=== PATIENT | male | born 1980 | race African-American/Black ===

== ENCOUNTER 2017-04-06 14:12 | Emergency (ER) | payer SELFPAY ==
[~2017-04-06] VITALS: Ht 177.8 cm; Wt 80.0 kg
[~2017-04-06 14:12] MED LIST: HYDR25SU7 RC; HYDR453.4 TP; MESA400C PO; VANJ5 PO
[2017-04-06] MEDS: SODIUM CHLORIDE 0.9% 1,000 ML IV ONE (19:17)
[2017-04-06] MEDS: KETOROLAC 30MG/ML VIAL IV STA (19:17)
[2017-04-06] MEDS: METOCLOPRAMIDE HCL 10MG/2ML VIAL IV ONE ×2 (19:30→20:50)
[2017-04-06 23:05] VITALS: BP 129/70
== END 2017-04-06 23:55 | disposition left against medical advice (07) ==
LOC: ER 14:12
DX: R51 Headache (principal); F17.200 Nicotine dependence, unspecified, uncomplicated; Z88.8 Allergy status to other drugs, medicaments and biological substances
CPT/HCPCS: 96361; 96374; 96375; 99284; J1885; J2765; J7030; Z7610

== ENCOUNTER 2017-04-11 03:10 | Inpatient (IN) | payer MEDICAID, OTHER ==
[~2017-04-11] VITALS: Ht 360.7 cm; Wt 75.7 kg
[2017-04-11] MEDS ORDERED: SODIUM CHLORIDE 0.9% 1,000 ML IV ONE ×2 (06:35→12:15)
[2017-04-11] MEDS ORDERED: ONDANSETRON HCL 4MG/2ML VIAL IV STA (06:35)
[2017-04-11] MEDS ORDERED: MORPHINE SULFATE 4 MG/ML CPJ (NOT FOR IM USE) IV STA (06:35)
[2017-04-11] MEDS ORDERED: PANTOPRAZOLE SODIUM 40 MG/VIAL IV STA (06:35)
[2017-04-11 07:18] LABS: BASOPHILS % 1.2 % (0.0-2.0); EOSINOPHILS % 2.8 % (0.0-5.0); HEMATOCRIT. 41.4 % (42.0-52.0); LYMPHOCYTES % 14.1 % (20.0-50.0); MEAN CORPUSCULAR HEMOGLOBIN 30.5 pg (28.0-32.0); MEAN CORPUSCULAR VOLUME 90.1 fL (80.0-94.0); MEAN PLATELET VOLUME 9.4 fl (7.4-10.4); MONOCYTES % 14.5 % (2.0-8.0); NEUTROPHILS % 67.4 % (40.0-76.0); PLATELET 237 x1000/uL (130-400); RED BLOOD CELL COUNT 4.59 mill/uL (4.7-6.1); RED CELL DISTRIBUTION WIDTH 13.6 % (11.6-14.6)
[2017-04-11 07:33] LABS: INR 1.1; PARTIAL THROMBOPLASTIN TIME 25.3 sec (23.4-31.0); PROTHROMBIN TIME 11.4 sec (9.4-11.6)
[2017-04-11 08:20] LABS: CARBON DIOXIDE 26 mEq/L (21-32); CHLORIDE 107 mEq/L (98-107)
[2017-04-11] MEDS ORDERED: IOHEXOL-300 100 ML BOTTLE ONE (10:47)
[2017-04-11] MEDS ORDERED: TRAMADOL 50MG TABLET PO PRN (13:30)
[2017-04-11 14:28] VITALS: BP 123/78
[2017-04-11] MEDS ORDERED: HYDROMORPHONE HCL/PF 2MG/ML CPJ IV PRN (16:15)
[2017-04-11 17:28] LABS: PHOSPHORUS 2.8 mg/dL (2.5-4.9); PREALBUMIN 15.2 mg/dL (20.0-40.0)
[2017-04-11] MEDS: DEXT 5%/0.45% NACL 1000ML 1,000 ML IV SCH (18:09)
[2017-04-11] MEDS: LEVOFLOXACIN 500MG PREMIX 100 ML IV SCH (18:15)
[2017-04-11 20:32] VITALS: BP 112/75
[2017-04-11] MEDS: METRONIDAZOLE 500 MG PREMIX 100 ML IV SCH (22:03)
[2017-04-12 00:33] VITALS: BP 120/73
[2017-04-12] MEDS: KETOROLAC 30MG/ML VIAL IV PRN ×2 (02:51→09:32)
[2017-04-12] MEDS: ONDANSETRON HCL 4MG/2ML VIAL IV PRN (02:52)
[2017-04-12 04:00] VITALS: BP 128/93
[2017-04-12] MEDS: METRONIDAZOLE 500 MG PREMIX 100 ML IV SCH ×3 (06:58→22:41)
[2017-04-12 08:30] VITALS: BP 102/65
[2017-04-12] MEDS: AMOXICILLIN 500 MG CAPSULE PO SCH ×2 (09:31→22:41)
[2017-04-12] MEDS: FAMOTIDINE 20MG/2ML VIAL IV SCH (09:32)
[2017-04-12 09:43] LABS: BASOPHILS % 0.8 % (0.0-2.0); EOSINOPHILS % 2.3 % (0.0-5.0); HEMATOCRIT. 38.2 % (42.0-52.0); HEMOGLOBIN. 13.2 g/dL (14.0-18.0); LYMPHOCYTES % 15.2 % (20.0-50.0); MEAN CORPUSCULAR HEMOGLOBIN 30.8 pg (28.0-32.0); MEAN CORPUSCULAR VOLUME 89.3 fL (80.0-94.0); MEAN PLATELET VOLUME 9.2 fl (7.4-10.4); MONOCYTES % 12.8 % (2.0-8.0); NEUTROPHILS % 68.9 % (40.0-76.0); PLATELET 228 x1000/uL (130-400); RED BLOOD CELL COUNT 4.28 mill/uL (4.7-6.1); RED CELL DISTRIBUTION WIDTH 13.6 % (11.6-14.6)
[2017-04-12 10:00] LABS: CARBON DIOXIDE 24 mEq/L (21-32); CHLORIDE 102 mEq/L (98-107)
[2017-04-12 12:25] VITALS: BP 118/81
[2017-04-12] MEDS: ACETAMINOPHEN 325MG TABLET PO PRN (15:36)
[2017-04-12 16:58] VITALS: BP 109/76
[2017-04-12] MEDS: DEXT 5%/0.45% NACL 1000ML 1,000 ML IV SCH (17:35)
[2017-04-12] MEDS: LEVOFLOXACIN 500MG PREMIX 100 ML IV SCH (18:00)
[2017-04-13] MEDS: METRONIDAZOLE 500 MG PREMIX 100 ML IV SCH ×3 (06:00→22:07)
[2017-04-13] MEDS: KETOROLAC 30MG/ML VIAL IV PRN ×2 (07:20→22:37)
[2017-04-13 08:21] VITALS: BP 112/71
[2017-04-13] MEDS: AMOXICILLIN 500 MG CAPSULE PO SCH ×3 (09:05→22:38)
[2017-04-13] MEDS: FAMOTIDINE 20MG/2ML VIAL IV SCH (09:05)
[2017-04-13] MEDS: ACETAMINOPHEN 325MG TABLET PO PRN (11:28)
[2017-04-13] MEDS: DEXT 5%/0.45% NACL 1000ML 1,000 ML IV SCH (11:28)
[2017-04-13 12:31] VITALS: BP 108/64
[2017-04-13 16:58] VITALS: BP 108/63
[2017-04-13] MEDS: LEVOFLOXACIN 500MG PREMIX 100 ML IV SCH (17:31)
[2017-04-13 20:00] VITALS: BP 119/79
[2017-04-13] MEDS: ONDANSETRON HCL 4MG/2ML VIAL IV PRN (22:37)
[2017-04-14] MEDS: METRONIDAZOLE 500 MG PREMIX 100 ML IV SCH (02:07)
[2017-04-14 08:00] VITALS: BP 114/77
[2017-04-14] MEDS: FAMOTIDINE 20MG/2ML VIAL IV SCH (08:31)
[2017-04-14] MEDS: AMOXICILLIN 500 MG CAPSULE PO SCH ×2 (08:32→21:03)
[2017-04-14] MEDS ORDERED: METRONIDAZOLE 500 MG PREMIX 100 ML IV SCH (10:00)
[2017-04-14 12:00] VITALS: BP 110/68
[2017-04-14] MEDS: KETOROLAC 30MG/ML VIAL IV PRN ×2 (12:19→22:25)
[2017-04-14] MEDS: DEXT 5%/0.45% NACL 1000ML 1,000 ML IV SCH (15:32)
[2017-04-14 16:00] VITALS: BP 129/72
[2017-04-14] MEDS: LEVOFLOXACIN 500MG PREMIX 100 ML IV SCH (17:17)
[2017-04-14] MEDS ORDERED: LEVOFLOXACIN 500MG TABLET PO SCH (17:29)
[2017-04-14] MEDS: METRONIDAZOLE 500MG TABLET PO SCH ×2 (18:06→21:04)
[2017-04-14 20:00] VITALS: BP 120/81
[2017-04-15] VITALS: BP 111/67
[2017-04-15] MEDS: DEXT 5%/0.45% NACL 1000ML 1,000 ML IV SCH (00:02)
[2017-04-15 04:00] VITALS: BP 116/65
[2017-04-15] MEDS: METRONIDAZOLE 500MG TABLET PO SCH (05:01)
[2017-04-15] MEDS: KETOROLAC 30MG/ML VIAL IV PRN ×2 (05:06→12:00)
[2017-04-15 08:00] VITALS: BP 123/72
[2017-04-15] MEDS: AMOXICILLIN 500 MG CAPSULE PO SCH (09:21)
[2017-04-15] MEDS ORDERED: TRAM50TA73 PO (10:23)
[2017-04-15 12:00] VITALS: BP 129/88
[2017-04-15 13:42] VITALS: BP 129/88
== END 2017-04-15 14:50 | disposition home or self-care (01) | DRG 245 ==
LOC: ER 03:18 → 6WST 09:53 → ENRESERV 13:11
PROVIDERS: ADMIT Hospitalist; ATTEND Hospitalist
DX: K50.90 Crohn's disease, unspecified, without complications (principal); E44.1 Mild protein-calorie malnutrition; K92.2 Gastrointestinal hemorrhage, unspecified; K52.9 Noninfective gastroenteritis and colitis, unspecified; K40.90 Unilateral inguinal hernia, without obstruction or gangrene, not specified as recurrent; K43.5 Parastomal hernia without obstruction or gangrene; Z90.49 Acquired absence of other specified parts of digestive tract; Z93.3 Colostomy status; Z88.8 Allergy status to other drugs, medicaments and biological substances; Z79.2 Long term (current) use of antibiotics; Z79.899 Other long term (current) drug therapy; Z93.2 Ileostomy status; Z68.1 Body mass index [BMI] 19.9 or less, adult
CPT/HCPCS: 36415; 71010; 74177; 80053; 82962; 83690; 83735; 84100; 84134; 84478; 85025; 85610; 85730; 87040; 87493; 96361; 96374; 96375; 99285; C1893; C9113; J1170; J1885; J1956; J2270; J2405; J3490; J7030; Q9967

== ENCOUNTER 2017-04-17 00:58 | Emergency (ER) | payer MEDICAID ==
[~2017-04-17] VITALS: Ht 182.9 cm; Wt 77.0 kg
[2017-04-17] MEDS ORDERED: HYDROCODONE/ACETAMINOPHEN 5/325MG TABLET PO STA (05:24)
[2017-04-17] MEDS ORDERED: SODIUM CHLORIDE 0.9% 1,000 ML IV ONE ×2 (05:24→08:30)
[2017-04-17 05:50] LABS: CHLORIDE 99 mEq/L (98-107)
[2017-04-17 05:53] LABS: BASOPHILS % 1.1 % (0.0-2.0); EOSINOPHILS % 2.7 % (0.0-5.0); HEMATOCRIT. 47.3 % (42.0-52.0); LYMPHOCYTES % 18.6 % (20.0-50.0); MEAN CORPUSCULAR VOLUME 91.6 fL (80.0-94.0); MEAN PLATELET VOLUME 8.8 fl (7.4-10.4); MONOCYTES % 11.5 % (2.0-8.0); NEUTROPHILS % 66.1 % (40.0-76.0); PLATELET 264 x1000/uL (130-400); RED BLOOD CELL COUNT 5.17 mill/uL (4.7-6.1); RED CELL DISTRIBUTION WIDTH 13.8 % (11.6-14.6)
[2017-04-17 05:58] LABS: CARBON DIOXIDE 25 mEq/L (21-32); ETHANOL BLOOD < 10 mg/dL
[2017-04-17] MEDS ORDERED: ONDANSETRON HCL 4MG/2ML VIAL IV ONE (07:45)
[2017-04-17] MEDS ORDERED: KETOROLAC 30MG/ML VIAL IV ONE (07:45)
[2017-04-17 10:01] LABS: CLARITY URINE CLEAR (CLEAR); COLOR URINE YELLOW (YELLOW); GLUCOSE URINE NEGATIVE (NEGATIVE); KETONES URINE NEGATIVE (NEGATIVE); LEUKOCYTE ESTERASE URINE NEGATIVE (NEGATIVE); NITRITE URINE NEGATIVE (NEGATIVE); OCCULT BLOOD URINE NEGATIVE (NEGATIVE); PH URINE 5.5 (4.5-8.0); PROTEIN URINE NEGATIVE (NEGATIVE); SPECIFIC GRAVITY URINE 1.011 (1.005-1.030); UROBILINOGEN URINE 0.2 E.U./dL (0.2-1.0)
[2017-04-17 10:21] LABS: *AMPHETAMINES SCREEN URINE NEGATIVE (NEGATIVE); *BARBITURATES SCREEN URINE NEGATIVE (NEGATIVE); *BENZODIAZEPINES SCREEN URINE NEGATIVE (NEGATIVE); *COCAINE SCREEN URINE NEGATIVE (NEGATIVE); CANNABINOID URINE SCREEN NEGATIVE (NEGATIVE); METHADONE URINE SCREEN NEGATIVE (NEGATIVE); OPIATES URINE SCREEN PRESUMTIVE POSITIVE (NEGATIVE); PHENCYCLIDINE URINE SCREEN NEGATIVE (NEGATIVE)
[2017-04-17] MEDS ORDERED: HYDROCODONE/ACETAMINOPHEN 5/325MG TABLET PO ONE (10:45)
[2017-04-17] MEDS ORDERED: KETOROLAC 15MG/ML VIAL IV ONE (11:15)
[2017-04-17 13:25] VITALS: BP 122/80
== END 2017-04-17 13:37 | disposition home or self-care (01) ==
LOC: ER 01:06
DX: R53.1 Weakness (principal); R51 Headache; K50.90 Crohn's disease, unspecified, without complications; Z88.8 Allergy status to other drugs, medicaments and biological substances; Z79.899 Other long term (current) drug therapy; Z87.19 Personal history of other diseases of the digestive system
CPT/HCPCS: 36415; 80053; 80305; 81003; 83690; 85025; 96361; 96374; 96375; 99285; C1893; G0482; J1885; J2405; J7030; Z7610

== ENCOUNTER 2022-11-09 06:05 | Inpatient (IN) | payer MEDICAID ==
[~2022-11-09] VITALS: Ht 172.7 cm; Wt 45.8 kg
[2022-11-09] MEDS ORDERED: MORPHINE SULFATE 4 MG/ML CPJ (NOT FOR IM USE) IV STA (06:34)
[2022-11-09] MEDS ORDERED: ONDANSETRON HCL 4MG/2ML INJ IV STA (06:34)
[2022-11-09] MEDS ORDERED: SODIUM CHLORIDE 0.9% 1,000 ML IV ONE (06:45)
[2022-11-09] MEDS ORDERED: CLONIDINE 0.1MG TABLET PO PRN (15:00)
[2022-11-09] MEDS ORDERED: ACETAMINOPHEN 325MG TABLET PO PRN ×2 (15:00)
[2022-11-09] MEDS ORDERED: ZOLPIDEM TARTRATE 5MG TABLET PO PRN (15:00)
[2022-11-09] MEDS ORDERED: IPRATROPIUM/ALBUTEROL 0.5-3(2.5)MG/3ML NEB NEB PRN (15:00)
[2022-11-09] MEDS ORDERED: ONDANSETRON HCL 4MG/2ML INJ IV PRN (15:00)
[2022-11-09] MEDS ORDERED: NITROGLYCERIN 0.4MG TABLET SL SL PRN (15:00)
[2022-11-09] MEDS ORDERED: MAGNESIUM/ALUMINUM HYDROXIDE/SIMETHICONE 30ML UDC PO PRN (15:00)
[2022-11-09] MEDS: DEXT 5%/LACTATED RINGERS 1,000 ML IV SCH (15:00)
[2022-11-09] MEDS ORDERED: DOCUSATE SODIUM 100MG CAPSULE PO PRN (15:00)
[2022-11-09] MEDS ORDERED: GUAIFENESIN 200MG/10ML SUGAR FREE UDC PO PRN (15:00)
[2022-11-09 17:15] LABS: INR 1.2
[2022-11-09 17:35] LABS: CHLORIDE 108 mEq/L (98-107)
[2022-11-09 17:54] LABS: ETHANOL BLOOD < 10 mg/dL; T4 FREE 1.03 ng/dL (0.76-1.46)
[2022-11-09 18:44] VITALS: BP 104/77
[2022-11-09] MEDS ORDERED: POTASSIUM CHLORIDE 20MEQ/PACKET PO NR (20:00)
[2022-11-09] MEDS: KETOROLAC 30MG/ML VIAL IV PRN (20:26)
[2022-11-09] MEDS ORDERED: KCL 20MEQ/100ML PREMIX 100 ML IV NR (21:00)
[2022-11-09 23:14] LABS: TOTAL IRON BINDING CAPACITY 122 ug/dL (250-450)
[2022-11-10] VITALS: BP 98/63
[2022-11-10] MEDS ORDERED: ACETAMINOPHEN 650MG/20.3ML UDC PO PRN (00:46)
[2022-11-10] MEDS: KETOROLAC 30MG/ML VIAL IV PRN ×3 (02:49→17:41)
[2022-11-10 04:00] VITALS: BP 89/52
[2022-11-10] MEDS: DEXT 5%/LACTATED RINGERS 1,000 ML IV SCH ×2 (04:58→17:40)
[2022-11-10] MEDS ORDERED: DIATR MEGLU/DIATRIZOATE SOLN 30ML PO SCH (07:00)
[2022-11-10 08:51] LABS: HEMATOCRIT. 23.6 % (42.0-52.0); HEMOGLOBIN. 7.7 g/dL (14.0-18.0); MEAN CORPUSCULAR HEMOGLOBIN 28.1 pg (28.0-32.0); MEAN CORPUSCULAR VOLUME 86.4 fL (80.0-94.0); PLATELET 492 x1000/uL (130-400); RED BLOOD CELL COUNT 2.73 mill/uL (4.7-6.1); RED CELL DISTRIBUTION WIDTH 16.3 % (11.6-14.6)
[2022-11-10] MEDS: PANTOPRAZOLE SODIUM 40 MG/VIAL IV SCH ×2 (09:00→09:38)
[2022-11-10 09:15] LABS: CHLORIDE 108 mEq/L (98-107)
[2022-11-10 09:22] LABS: PHOSPHORUS 2.3 mg/dL (2.5-4.9)
[2022-11-10] MEDS: ENOXAPARIN 30MG/0.3ML SYR SUBCUT SCH (12:00)
[2022-11-10] MEDS ORDERED: POTASSIUM PHOS,M-BASIC-D-BASIC 15 MMOL in DEXT 5% WATER 245 ML IV NR (16:30)
[2022-11-10 17:05] LABS: PLATELET ESTIMATE INCREASED
[2022-11-11] MEDS: KETOROLAC 30MG/ML VIAL IV PRN ×3 (01:26→17:56)
[2022-11-11 08:00] VITALS: BP 98/59
[2022-11-11] MEDS: PANTOPRAZOLE SODIUM 40 MG/VIAL IV SCH (08:52)
[2022-11-11] MEDS: DEXT 5%/LACTATED RINGERS 1,000 ML IV SCH (08:52)
[2022-11-11 10:55] LABS: BASOPHILS % 0.6 % (0.0-2.0); EOSINOPHILS % 0.5 % (0.0-5.0); HEMATOCRIT. 23.4 % (42.0-52.0); HEMOGLOBIN. 7.5 g/dL (14.0-18.0); LYMPHOCYTES % 8.6 % (20.0-50.0); MEAN CORPUSCULAR HEMOGLOBIN 27.5 pg (28.0-32.0); MEAN CORPUSCULAR VOLUME 85.6 fL (80.0-94.0); MEAN PLATELET VOLUME 6.4 fl (7.4-10.4); MONOCYTES % 14.5 % (2.0-8.0); NEUTROPHILS % 75.8 % (40.0-76.0); PLATELET 493 x1000/uL (130-400); RED BLOOD CELL COUNT 2.74 mill/uL (4.7-6.1); RED CELL DISTRIBUTION WIDTH 16.5 % (11.6-14.6)
[2022-11-11 11:02] LABS: CHLORIDE 106 mEq/L (98-107)
[2022-11-11 11:08] LABS: PHOSPHORUS 3.4 mg/dL (2.5-4.9)
[2022-11-11 12:59] VITALS: BP 98/59
[2022-11-11 16:00] VITALS: BP 93/55
[2022-11-11 17:56] VITALS: BP 98/59
[2022-11-11] MEDS: ENOXAPARIN 30MG/0.3ML SYR SUBCUT SCH (17:56)
[2022-11-14 09:09] LABS: SACCHAROMYCES CEREVISIAE IGG 64.2 Units (0.0-24.9); SACCHAROMYCES CEREVISIAE IGM 225.5 Units (0.0-24.9)
[2022-11-15 13:11] LABS: ATYPICAL pANCA <1:20 titer (Neg:<1:20)
== END 2022-11-11 20:48 | disposition home or self-care (01) | DRG 245 ==
LOC: ER 06:05 → 6EST 09:54 → EDBEDREQ 10:07 → EDBEDREQTM 10:07
PROVIDERS: ADMIT Internal Medicine; ATTEND Internal Medicine
PROC: 02HV33Z Insertion of Infusion Device into Superior Vena Cava, Percutaneous Approach (ICD-10-PCS; principal; 2022-11-09)
PROC: B548ZZA Ultrasonography of Superior Vena Cava, Guidance (ICD-10-PCS; 2022-11-09)
DX: K50.10 Crohn's disease of large intestine without complications (principal); E43 Unspecified severe protein-calorie malnutrition; E77.8 Other disorders of glycoprotein metabolism; E83.51 Hypocalcemia; K94.09 Other complications of colostomy; Z68.1 Body mass index [BMI] 19.9 or less, adult; K43.5 Parastomal hernia without obstruction or gangrene; D64.9 Anemia, unspecified; E87.6 Hypokalemia; Z90.49 Acquired absence of other specified parts of digestive tract
CPT/HCPCS: 36415; 36573; 71045; 74176; 80048; 80053; 80320; 82270; 82607; 82746; 83540; 83550; 83735; 84100; 84439; 84443; 85025; 85651; 86256; 86671; 87015; 87045; 87427; 87449; 89055; 93005; 99285; C1725; C9113; J1650; J1885; J3480; J3490; J7030; J7060; J7121; Q9963; G0480